=== PATIENT | male | born 1965 | race Caucasian/White ===

== ENCOUNTER 2019-06-03 06:50 | Outpatient (CLI) | payer OTHER | END 2019-06-03 23:59 | disposition home or self-care (01) | LOC: CVU 06:50 | PROVIDERS: ATTEND Family Medicine | DX: I08.8 Other rheumatic multiple valve diseases (principal); E78.5 Hyperlipidemia, unspecified | CPT/HCPCS: 93306 ==

== ENCOUNTER 2019-06-08 06:06 | Day surgery (SDC) | payer OTHER ==
[~2019-06-08] VITALS: Ht 182.9 cm; Wt 104.5 kg
[2019-06-08] MEDS ORDERED: ASPI-496 PO (06:55)
[2019-06-08] MEDS ORDERED: DIVA500T2 PO (06:55)
[2019-06-08] MEDS ORDERED: FLAX10004 PO (06:55)
[2019-06-08] MEDS ORDERED: CHOL200024 PO (06:55)
[2019-06-08] MEDS ORDERED: CLON1TAB PO (06:55)
[2019-06-08] MEDS ORDERED: ATOR40TA PO (06:55)
[2019-06-08] MEDS ORDERED: SODIUM CHLORIDE 0.9% 1,000 ML IV SCH (07:00)
[2019-06-08] MEDS ORDERED: PROPOFOL 10 MG/ML, 20ML ONE ×5 (07:06→07:12)
[2019-06-08] MEDS ORDERED: SUCCINYLCHOLINE 20 MG/ML, 10ML ONE (07:10)
[2019-06-08] MEDS ORDERED: LIDOCAINE-MPF 2% ,5ML ONE (07:11)
[2019-06-08] MEDS ORDERED: DEXAMETHASONE 4 MG/ML, 1ML ONE ×2 (07:13)
[2019-06-08] MEDS ORDERED: LIDOCAINE GEL 2%, 5ML ONE (07:17)
[2019-06-08 07:22] LABS: BASOPHILS # (AUTO) 0.01 x10^3/uL (0-0.1); BASOPHILS % (AUTO) 0 % (0-1); EOSINOPHILS # (AUTO) 0.06 x10^3/uL (0-0.4); EOSINOPHILS % (AUTO) 1 % (1-7); LYMPHOCYTES # (AUTO) 1.62 x10^3/uL (1-3.4); LYMPHOCYTES % (AUTO) 30 % (22-44); MD NO; MEAN CORPUSCULAR HEMOGLOBIN 29.9 pg (27.5-34.5); MEAN CORPUSCULAR HGB CONC 33.5 g/dL (33.2-36.2); MEAN CORPUSCULAR VOLUME 89.2 fL (81-97); MEAN PLATELET VOLUME 10.4 fL (7.4-10.4); MONOCYTES % (AUTO) 7 % (2-9); NEUTROPHILS # (AUTO) 3.39 x10^3/uL (1.8-6.8); NEUTROPHILS % (AUTO) 62 % (42-75); PLATELET COUNT 141 x10^3/uL (130-400); RED BLOOD COUNT 5.13 x10^6/uL (4.38-5.82); RED CELL DISTRIBUTION WIDTH 14.2 % (9.4-14.8)
[2019-06-08 07:41] LABS: ANION GAP 5 mmol/L (5-15); CALCIUM 8.9 mg/dL (8.5-10.1); CHLORIDE 110 mmol/L (98-107); CREATININE 1.13 mg/dL (0.7-1.3)
[2019-06-08 07:45] VITALS: BP 127/72
[2019-06-08] MEDS ORDERED: FENTANYL PF 100 MCG/2ML ONE (12:08)
[2019-06-08] MEDS ORDERED: HEPARIN 1,000 UNITS/ML, 10ML ONE (12:08)
[2019-06-08] MEDS ORDERED: MIDAZOLAM 1 MG/ML, 5ML ONE (12:08)
[2019-06-08] MEDS ORDERED: LIDOCAINE-MPF 1%, 5ML ONE (12:08)
[2019-06-08] MEDS ORDERED: VERAPAMIL 2.5 MG/ML, 2ML ONE (12:08)
== END 2019-06-08 14:41 | disposition home or self-care (01) ==
LOC: CACL 06:06
PROVIDERS: ATTEND Internal Medicine Cardiovascular Disease
DX: I08.0 Rheumatic disorders of both mitral and aortic valves (principal); E78.5 Hyperlipidemia, unspecified; G40.909 Epilepsy, unspecified, not intractable, without status epilepticus; Z79.82 Long term (current) use of aspirin; Z79.899 Other long term (current) drug therapy
CPT/HCPCS: 36415; 80048; 85025; 93312; 93321; 93458; 99156; 99157; C1769; C1894; J0330; J1100; J1644; J2250; J2704; J3010; Q9967

== ENCOUNTER → 2019-10-11 | Outpatient (CLI) | payer OTHER ==
[~2019-10-11] MED LIST: AMIO400T5 PO; ASPI-496 PO; ATOR40TA PO; CHOL10002 PO; CHOL200024 PO; CLON1TAB PO; DIVA500T2 PO; FLAX10004 PO; FURO40TA6 PO; OXYC5TAB3 PO; POTA20TA6 PO; WARF5TAB PO
== END | disposition home or self-care (01) ==
LOC: CVU 07:41
PROVIDERS: ATTEND Internal Medicine Cardiovascular Disease
DX: I08.8 Other rheumatic multiple valve diseases (principal); E78.5 Hyperlipidemia, unspecified
CPT/HCPCS: 93306